=== PATIENT | male | born 1970 | race Caucasian/White ===

== ENCOUNTER 2017-08-06 02:48 | Observation (INO) | payer SELFPAY ==
[~2017-08-06] VITALS: Ht 185.4 cm; Wt 127.0 kg
[~2017-08-06 02:48] MED LIST: HYDROMORPHONE HC2 M1 PO
--- NOTE | 2017-08-06 17:21 | Operative Report ---
Operative/Inv Procedure Report Surgery Date: 08/06/17 Name of Procedure: Bilateral breast reduction free nipple technique liposuction abdominal wall in size, medial thigh lift, buttock lift, liposuction low back Pre-Operative Diagnosis: Lipodystrophy status post massive weight loss Post-Operative Diagnosis: Same Estimated Blood Loss: scant (400) Surgeon/Brassiere Cup Mold Cutter: Jarek Belle MD Anesthesia: general endotracheal tube Operative/Procedure Note Note: Patient was counseled in regards to the procedures the alternatives the risks and the expected outcomes as relates to his request to treat lipodystrophy following massive weight loss. This included liposuction of the abdominal wall bilateral breast reduction with free nipple technique a medial thigh lift with liposuction and liposuction of the low back with a buttock lift. Patient was given a SPS informed consent. We talked about pain bleeding blood clots pulmonary emboli open wounds requiring prolonged wound care definitely visible scarring possibly unsightly or symptomatic partial complete loss of the nipple grafts. Once agreed informed consent was signed. The patient was previously marked in the office and marked again today. He was taken to the operating room after signing informed consent. On the table Venodyne boots are placed and general anesthesia was established intravenous antibiotics were given. Timmons catheter was placed. Massive fluid was placed in the thighs and the areas of planned excision as well as anteriorly. Bilateral breast reduction with the of the amputation technique with a free nipple graft was carried out and the wounds were closed 3 layers over drains. His were fixed with Alvaro bolster dressings. Liposuction was carried out of the anterior abdominal wall left using standard tumescent fluid as well. Skin only excision was carried out of the thighs with tailor tacking. Her closure with yang sutures over drains was performed with a medial thighs. Proximally a liter of tumescent was placed in each thigh with a liter of aspirate. Patient was then turned into the prone position where buttock lift was done via a low back skin and fat excision. 3 layer closure was carried around over drains. Liposuction the low back was performed of a small to moderate amount. Patient was then put supine and reprepped and draped to complete a small segment laterally along the waistline. This was done with 3 layer closure. Sterile dressings were applied to the sites as well as glue. Patient was stable throughout the procedure without any reports of instability.
[2017-08-06 20:00] VITALS: BP 140/78; BP 148/70
--- NOTE | 2017-08-06 20:37 | PN- Plastic Surgery ---
Subjective Subjective: Patient seen and evaulated for post op check s/p bilateral breast reduction, liposuction to abdomen/medial thigh/back, and buttock lift. Patient reports he is doing well though is tired and exhausted as expected. He has not been oob yet. Pt did have some nausea without vomiting. Reports eating crackers and small sips of water. Otherwise doing well. Currently denies cp, sob, n/v/d, fever/ chills, headaches, palpitations. No other questions or concerns at this time. Objective Vital Signs and I&Os as per chart Physical Exam: General: obese middle age male laying in bed with head elivated to 30, answering questions, NAD Cardiac: RRR, s1s2, no murmer Pulm: CTA b/l anterior/lateral yousif Abdomen: abdominal binder in place with dressing under that appear charisse/dry/ intact, 3 YANA drains to each side with ss discharge, pain with major movmenets Back: dressing c/d/i extremitys: warm, well perfused Current Medications: Current Medications Sig/Cj Start time Last Medication Dose Route Stop Time Status Admin Acetaminophen 650 MG Q6PRN PRN 08/06 1899 AC PO Acetaminophen 1,000 MG .STK-MED ONE 08/06 06 DC IV 08/06 06 Cefazolin Sodium 3,000 MG ONCE 08/06 0000 NR IV 08/06 2359 Fentanyl Citrate 250 MCG .STK-MED ONE 08/06 1152 DC IM 08/06 1153 Fentanyl Citrate 250 MCG .STK-MED ONE 08/06 0942 DC IM 08/06 0943 Fentanyl Citrate 250 MCG .STK-MED ONE 08/06 0654 DC IM 08/06 0655 Lactated Ringer's 1,000 ML Q10H 08/06 1899 AC IV Midazolam HCl 2 MG .STK-MED ONE 08/06 06 DC IM 08/06 06 Morphine Sulfate 10 MG .STK-MED ONE 08/06 06 DC IV 08/07 655 Ondansetron HCl 4 MG Q8P PRN 08/06 190 AC 08/06 IV 2003 Oxycodone/ 1 TAB Q4P PRN 08/06 1900 AC 08/06 Acetaminophen PO 2004 Oxycodone/ 2 TAB Q4P PRN 08/06 190 AC Acetaminophen PO Scopolamine HBr 0 .STK-MED ONE 08/06 0720 PA TOP Assessment/Plan Assessment/Plan POD#0 s/p bilateral breast reduction, liposuction to abdomen/medial thigh/back, and buttock lift. Patient was admited for extended recovery after prolonged surgery. He remains hd stable, pain conrolled. -continue current pain regiumen -light ivf overnight -zofran prn -oob as tolerated -montior drain output Discussed with DR. Belle Core Measures Venous Thromboembolism VTE Risk Factors Surgery No Mechanical VTE Prophylaxis d/t N/A MechProphylax Ordered No VTE Pharm Prophylaxis d/t Surgical Contraindication
[2017-08-07 05:50] VITALS: BP 130/60
[2017-08-07 08:50] LABS: ABSOLUTE BASOPHIL COUNT 0 /CUMM (0.0-0.2); ABSOLUTE EOSINOPHIL COUNT 0 /CUMM (0.0-0.7); ABSOLUTE GRANULOCYTE CT 5.6 /CUMM (1.4-6.5); ABSOLUTE LYMPH COUNT 1.2 /CUMM (1.2-3.4); ABSOLUTE MONOCYTE COUNT 1.1 /CUMM (0.10-0.60); BASOPHIL % 0.4 % (0.0-2.0); EOSINOPHIL % 0.1 % (0-5); GRANULOCYTE % 70.6 % (42.2-75.2); HEMATOCRIT 26.2 % (42-52); MEAN CORPUSCULAR HGB 24.1 PG (27.0-31.0); MEAN CORPUSCULAR HGB CONC 32.5 G/DL (33.0-37.0); MEAN CORPUSCULAR VOLUME 74.3 FL (80.0-94.0); MEAN PLATELET VOLUME 11.3 FL (7.4-10.4); PLATELET COUNT 268 /CUMM (130-400); RBC DISTRIBUTION WIDTH 18.6 % (11.5-14.5); RED BLOOD CELL CT 3.52 /CUMM (4.70-6.10); WHITE BLOOD CELL COUNT 7.9 /CUMM (4.8-10.8)
--- NOTE | 2017-08-07 13:34 | Patient Discharge Instructions ---
Discharge Instructions General Discharge Information You were seen/treated for: LIPODYSTROPHY, MACROMASTIA You had these procedures: POSTERIOR LIPECTOMY, B BREAST REDUCTION, LIPOSUCTION OF ABDOMEN, THIGHS, BACK Watch for these problems: FEVER > 101, REDNESS, DRAINAGE FROM WOUNDS, CHEST PAIN OR DIFFICULTY BREATHING Call Surgeon to remove: DRAINS Do not soak the wound: Yes No bath, but you may shower: No Other wound care: SPONGE BATHE ONLY UNTIL DRAINS ARE REMOVED. NO SHOWERS OR BATHS. LEAVE DRESSINGS AND ABDOMINAL BINDER IN PLACE UNTIL SEEN BY MD. PLEASE EMPTY DRAINS AND RECORD OUTPUT. BRING RECORD TO THE OFFICE WITH YOU. Diet Continue normal diet: Yes Activity Full Activity/No Limits: No Activity Self Limited: Yes Pounds, do NOT lift more than: 5 Other activity limits: NO STRENUOUS ACTIVITY OR HEAVY LIFTING, PUSHING OR PULLING. NO DRIVING WHILE USING NARCOTICS. Acute Coronary Syndrome Inclusion Criteria At DC or during hospital stay patient has or had the following: ACS DIAGNOSIS No Discharge Core Measures Meds if any: Prescribed or Continued at Discharge Meds if any: NOT Prescribed or Continued at Discharge Congestive Heart Failure Inclusion Criteria At DC or during hospital stay patient has or had the following: CHF DIAGNOSIS No Discharge Core Measures Meds if any: Prescribed or Continued at Discharge Meds if any: NOT Prescribed or Continued at Discharge Cerebrovascular accident Inclusion Criteria At DC or during hospital stay patient has or had the following: CVA/TIA Diagnosis No Discharge Core Measures Meds if any: Prescribed or Continued at Discharge Meds if any: NOT Prescribed or Continued at Discharge Venous thromboembolism Inclusion Criteria VTE Diagnosis No VTE Type NONE VTE Confirmed by (Test) NONE Discharge Core Measures - Per Current guidelines, there needs to be overlap - treatment for the first 5 days of Warfarin therapy. - If discharged on Warfarin prior to 5 days of - overlap therapy, the patient will need to be - assessed for post discharge needs including - *Post discharge parental anticoagulation - *Warfarin and/or parental anticoagulation education - *Follow up date to check INR post discharge At least 5 days overlap therapy as Inpatient No Meds if any: Prescribed or Continued at Discharge Note: Overlap Therapy is Warfarin and Anticoagulant Meds if any: NOT Prescribed or Continued at Discharge
--- NOTE | 2017-08-07 13:56 | PN- Plastic Surgery ---
Subjective Subjective: Pt has no major complaints at this time. He had an episode of nausea and small emesis this morning, but has since tolerated solid food. He ambulated with a rolling walker, without difficulty. Pain is reasonably controlled. No other complaints. Objective Vital Signs and I&Os Vital Signs Date Time Temp Pulse Resp B/P B/P Pulse O2 O2 Flow FiO2 Mean Ox Delivery Rate 08/07 0730 22 95 Room Air 08/07 0550 98.7 92 22 130/60 96 Nasal 1.0L Cannula 08/07 1999 100 Nasal 3.0L Cannula 08/07 1999 98.2 84 18 140/78 100 Nasal 3.0L Cannula Intake & Output 08/07 1600 08/07 0800 08/07 0000 08/06 1600 08/06 0800 08/06 0000 Intake Total 2080 470 Output Total 460 1520 100 Balance -460 560 370 Intake, IV 800 230 Intake, Oral 1280 240 Number 0 0 Bowel Movements Output, 160 170 100 Drainage Output, Urine 300 1350 Patient 280 lb Weight Physical Exam: Gen: Pt is awake and alert. NAD. Chest/Abdomen: Dressings and abdominal binder are in place and noted to be clean and dry. JPs are with a large amount of serosanginous output, as expected. Ext: no calf tenderness. Assessment/Plan Assessment/Plan Pt is a 46 yo M who is now POD #1 s/p Posterior lipectomy, B breast reduction, and liposuction of the abdomen and thighs. He was placed in 23 hour observation postoperatively due to late surgery with prolonged anesthesia last evening. Plan: -pt was seen by Dr. Belle this morning. -ok to dc home this afternoon. -he has Rx for pain meds at home already. -leave dressings in place. -YANA teaching. all drains to remain in place. -F/u with Dr. Belle next week. Core Measures Venous Thromboembolism VTE Risk Factors Surgery No Mechanical VTE Prophylaxis d/t N/A MechProphylax Ordered No VTE Pharm Prophylaxis d/t Surgical Contraindication
--- NOTE | 2017-08-07 13:56 | Surg Short-stay <48hrs Dis Sum ---
Visit Information Visit Dates Admission Date: 08/06/17 Discharge Date: 08/07/2017 Surgical Short Stay DC Summary Admission Diagnosis: Lipodystrophy of the abdomen, thighs, and back. Macromastia, breast ptosis Final Diagnosis: Same Procedure(s): Bilateral breast reduction. liposuction of the abdomen, thighs, and flanks. Posterior lipectomy/buttock lift. Summary/Significant Findings: Patient is a 46-year-old male who is status post bilateral breast reduction, liposuction of the thighs, abdomen, and back, with buttock lift on 08/06/2017. He tolerated the procedure well, but was placed in observation overnight for 23 hours due to prolonged anesthesia and operative time. He had a brief episode of nausea and vomiting on postoperative day #1, which resolved with Zofran. He was subsequently able to tolerate a diet. He voided without difficulty, vital signs were stable, and he was subsequently cleared for discharge. Condition at Discharge: Stable Discharge Disposition: home or self care Discharge instructions provided to patient/family: Yes Post discharge follow-up plan: Patient should leave all of his dressings in place, including the abdominal binder. YANA drains can be empty 2-3 times per day and output should be recorded. Patient should bring the record of the drain output to the office for his first postop visit. Avoid strenuous activity, heavy lifting, pushing, or pulling. No driving while using narcotics.
[2017-08-07 14:43] VITALS: BP 114/58
== END 2017-08-07 15:10 ==
LOC: STS 02:48 → PACUH 18:30 → ENRESERV 18:51 → ENTRNSPT 19:31 → EDTRNSPT 19:43 → EDTRNSPTSTS 19:43 → 2NB 19:56 → CMPTRNSPT 20:04 → ENPENDDIS 08-07 13:36 → ENTRNSPT 08-07 14:41 → EDTRNSPTSTS 08-07 14:59 → 2NB 08-07 15:10 → CMPTRNSPT 08-07 15:17
PROVIDERS: Physician Assistant Surgical
DX: Z41.1 Encounter for cosmetic surgery (principal); E88.1 Lipodystrophy, not elsewhere classified
CPT/HCPCS: 1328; 1530; 1748; 6040; 36592; 96374; 96376; C9399; G0378; J0131; J0171; J0690; J2250; J2405; J7120; Q9968